=== PATIENT | male | born 1955 | race African-American/Black ===

== ENCOUNTER 2020-06-10 20:32 | Emergency (ER) | payer OTHER, MEDICAID ==
[~2020-06-10] VITALS: Ht 170.2 cm; Wt 76.0 kg
[2020-06-10 20:49] VITALS: BP 173/95
[2020-06-10] MEDS ORDERED: ACETAMINOPHEN 325MG TABLET PO STA (21:29)
== END 2020-06-10 22:50 | disposition home or self-care (01) ==
LOC: ER 20:32
DX: K40.90 Unilateral inguinal hernia, without obstruction or gangrene, not specified as recurrent (principal); I10 Essential (primary) hypertension
CPT/HCPCS: 93005; 99283

== ENCOUNTER 2020-06-15 03:33 | Emergency (ER) | payer OTHER, MEDICAID ==
[~2020-06-15] VITALS: Ht 170.2 cm; Wt 86.0 kg
[2020-06-15] MEDS ORDERED: FAMOTIDINE 20MG/2ML VIAL IV STA (04:39)
[2020-06-15] MEDS ORDERED: ONDANSETRON 4MG ODT PO STA (04:39)
[2020-06-15] MEDS ORDERED: MORPHINE SULFATE 4 MG/ML CPJ (NOT FOR IM USE) IV STA (04:39)
[2020-06-15] MEDS ORDERED: DIATR MEGLU/DIATRIZOATE SOLN 30ML PO ONE (04:45)
[2020-06-15] MEDS ORDERED: SODIUM CHLORIDE 0.9% 1,000 ML IV ONE (04:45)
[2020-06-15 05:01] LABS: BASOPHILS % 0.5 % (0.0-2.0); EOSINOPHILS % 1.8 % (0.0-5.0); HEMATOCRIT. 43.1 % (42.0-52.0); HEMOGLOBIN. 14.2 g/dL (14.0-18.0); LYMPHOCYTES % 19.4 % (20.0-50.0); MEAN CORPUSCULAR HEMOGLOBIN 28.6 pg (28.0-32.0); MEAN CORPUSCULAR VOLUME 87.1 fL (80.0-94.0); MEAN PLATELET VOLUME 10.4 fl (7.4-10.4); NEUTROPHILS % 67.3 % (40.0-76.0); PLATELET 194 x1000/uL (130-400); RED BLOOD CELL COUNT 4.95 mill/uL (4.7-6.1)
[2020-06-15 05:09] LABS: CHLORIDE 113 mEq/L (98-107)
[2020-06-15 05:11] LABS: PROTHROMBIN TIME 10.7 sec (9.6-11.0)
[2020-06-15 05:33] LABS: CLARITY URINE CLEAR (CLEAR); COLOR URINE YELLOW (YELLOW); KETONES URINE NEGATIVE (NEGATIVE); LEUKOCYTE ESTERASE URINE NEGATIVE (NEGATIVE); NITRITE URINE NEGATIVE (NEGATIVE); OCCULT BLOOD URINE TRACE (NEGATIVE); PROTEIN URINE NEGATIVE (NEGATIVE); SPECIFIC GRAVITY URINE 1.016 (1.005-1.030); UROBILINOGEN URINE 0.2 E.U./dL (0.2-1.0)
[2020-06-15] MEDS ORDERED: MORPHINE SULFATE 4 MG/ML CPJ (NOT FOR IM USE) IV ONE ×2 (06:00→08:00)
[2020-06-15] MEDS ORDERED: IOHEXOL-300 100 ML BOTTLE ONE (07:13)
[2020-06-15] MEDS ORDERED: ONDANSETRON HCL 4MG/2ML INJ IV ONE (08:00)
[2020-06-15 10:01] VITALS: BP 160/90
== END 2020-06-15 10:05 | disposition home or self-care (01) ==
LOC: ER 03:33 → CANRESERV 07:31 → ENRESERV 07:31 → ER 10:05 → CANBEDREQ 12:35
DX: K40.90 Unilateral inguinal hernia, without obstruction or gangrene, not specified as recurrent (principal); K42.9 Umbilical hernia without obstruction or gangrene; I71.4 Abdominal aortic aneurysm, without rupture; N26.1 Atrophy of kidney (terminal); I10 Essential (primary) hypertension; R18.8 Other ascites; M47.896 Other spondylosis, lumbar region; M51.26 Other intervertebral disc displacement, lumbar region
CPT/HCPCS: 36415; 74177; 80053; 81003; 83605; 83690; 85025; 85610; 93005; 96361; 96374; 96375; 96376; 99285; J2270; J2405; J3490; J7030; Q0162; Q9963; Q9967